=== PATIENT | male | born 1980 | race Caucasian/White ===

== ENCOUNTER 2020-06-28 23:28 | Observation (INO) | payer OTHER ==
[~2020-06-28] VITALS: Ht 182.9 cm; Wt 88.0 kg
--- NOTE | 2020-06-28 23:38 | NUR ---
AMBULATED TO ROOM WITH STEADY GAIT.
--- NOTE | 2020-06-29 01:00 | NUR ---
RESTING QUIETLY. NO CHANGE IN EXAM.
[2020-06-29 01:32] LABS: HEMATOCRIT 45.7 % (39.0-50.0); HEMOGLOBIN 15.1 g/dl (14.0-18.0); IMMATURE GRANULOCYTES 0.3 % (0.0-5.0); MEAN CELL VOLUME 93.6 fL CALC (80.0-100.0); MEAN CORPUSCULAR HGB 30.9 pG CALC (26.0-32.0); NEUT# 2.78 thou/uL (1.82-7.42); RED BLOOD COUNT 4.88 mill/uL (4.70-6.10); RED CELL DISTRI WIDTH 13.4 % (11.5-15.5)
[2020-06-29 01:45] LABS: URINE BILIRUBIN - DIPSTICK NEGATIVE (NEGATIVE); URINE BLOOD DIPSTICK NEGATIVE (NEGATIVE); URINE COLOR YELLOW; URINE GLUCOSE - DIPSTICK NEGATIVE (NEGATIVE); URINE KETONE NEGATIVE (NEGATIVE); URINE LEUK ESTERASE NEGATIVE (NEGATIVE); URINE NITRITE - DIPSTICK NEGATIVE (Negative); URINE PROTEIN - DIPSTICK NEGATIVE (NEG-TRACE); URINE UROBILINOGEN - DIPSTICK 0.2 E.U./dL (0.2)
[2020-06-29 01:50] LABS: ALBUMIN 4.3 g/dL (3.2-5.0); ALKALINE PHOSPHATASE 42 u/l (38-126); AMYLASE 63 u/l (30-110); ANION GAP 9 (6-22 (CALC)); BILIRUBIN, TOTAL 0.4 mg/dL (0.0-1.4); BUN 21 mg/dL (9-20); BUN/CREATININE RATIO 20 (12-20 (CALC)); CARBON DIOXIDE 30 mmol/l (22-30); CHLORIDE 107 mmol/l (95-108); CREATININE 1.1 mg/dL (0.7-1.3); GFR > 60 ML/MIN (>=60 (CALC)); GFR FOR AFR.AMER. > 60 ML/MIN (>=60 (CALC)); LIPASE 183 u/l (23-300); POTASSIUM 4.3 mmol/l (3.5-5.1); SGOT/AST 24 u/l (17-59); SODIUM 142 mmol/l (137-146); TOTAL PROTEIN 6.6 g/dL (6.3-8.2)
--- NOTE | 2020-06-29 02:00 | NUR ---
AWAITING TEST RESULTS. RESTING COMFORTABLY.
[2020-06-29 02:03] LABS: MYOGLOBIN 17 ng/mL (0 - 121)
--- NOTE | 2020-06-29 03:00 | NUR ---
AWAITING DISPO. NO CHANGES NOTED. APPEARS COMFORTABLE.
--- NOTE | 2020-06-29 05:20 | NUR ---
Admission Note Report Given to: MADI DORSEY Transported by: X Wheelchair Stretcher Transported with: X Nurse Transporter X Patent IV O2 X Painter And Body Mechanic Apprentice Location: ICU X [facility]
[2020-06-29 07:23] VITALS: BP 113/76
--- NOTE | 2020-06-29 07:23 | NUR ---
PATIENT LAYING IN BED AT THIS TIME ALERT AND ORIENTED. DENIES ANY PAIN AT THIS TIME STATED FEELS BETTER AND BELIEVES HIS ISSUES IS BECAUSE OF "GERD". 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 PATIENT SIDERAILS ARE UP X 2 CALL LIGHT WITHIN REACH.
--- NOTE | 2020-06-29 07:28 | NUR ---
pt arrived to the floor via wheelchair. Alert and oriented and able to make needs known. skin warm tot touch. meds given this am and tolefrated well. adnitted on telemety and afib noted at 73. continent of b/b and up ad blair. call light within reach. will continue to observe
[2020-06-29 10:35] VITALS: BP 116/75
--- NOTE | 2020-06-29 12:00 | NUR ---
PATIENT SITTING IN BED AT THIS TIME GISSELLE ANY PAIN OR NEEDS CURRENTLY SIDERAILS ARE UP CALL LIGHT WITHIN REACH AT THIS TIME. 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
[2020-06-29] MEDS ORDERED: LOPRESSOR25 MG PO (13:54)
[2020-06-29] MEDS ORDERED: XARELTO20 MG PO (13:54)
--- NOTE | 2020-06-29 15:14 | NUR ---
PATIENT GIVEN VERBAL EDUCATION ON XARELTO 20MG. PATIENT VERBALIZES UNDERSTANDING OF MEDICATIONS AND ADVERSE EFFECTS. PATIENT TOLD TO CALL NURSE IF ANY ISSUES SHOULD ARISE.
[2020-06-29 15:35] VITALS: BP 124/73
--- NOTE | 2020-06-29 16:00 | NUR ---
PATIENT LAYING IN BED AT THIS TIME DENIES ANY NEEDS AT THIS TIME. TELE UNIT STILL ON. PATIENT DENIES ANY PAIN. ALL SAFETY MEASURES ARE IN PLACE CALL LIGHT WITHIN REACH.
--- NOTE | 2020-06-29 16:47 | NUR ---
PATIENT D/C AT THIS TIME. PATIENT VERBALIZES UNDERSTANDING OF D/C INSTRUCTIONS AT THIS TIME.
--- NOTE | 2020-06-29 17:30 | NUR ---
Discharge instructions given. Patient verbalizes understanding of same. Discharged in stable condition via Wheelchair to *Other with friend. All belongings sent with pt.
== END 2020-06-29 17:30 | disposition home or self-care (01) | DRG 310 ==
LOC: ED 23:28 → ED-I 06-29 03:23 → ED 06-29 04:06 → MS2 06-29 04:07
PROVIDERS: Emergency Medicine; ADMIT Internal Medicine; ATTEND Internal Medicine
DX: I48.91 Unspecified atrial fibrillation (principal); Z20.828 Contact with and (suspected) exposure to other viral communicable diseases
CPT/HCPCS: J1650